=== PATIENT | male | born 1940 | race Caucasian/White ===

== ENCOUNTER 2021-07-14 15:17 | Emergency (ER) | payer OTHER ==
[2021-07-14 16:46] LABS: BASOPHIL 0.8 % (0-2); EOSINOPHIL 1.4 % (0-7); HCT 35.7 % (42.0-52.0); HGB 11.9 g/dl (13.2-18.0); LYMPHOCYTE 38.5 % (15-48); MCH 32.5 pg (25.0-31.0); MCHC 33.3 g/dL (32.0-36.0); MCV 97.5 fL (78.0-100.0); MONOCYTE 5.7 % (0-12); MPV 10.2 fL (6.0-9.5); NEUTROPHIL 53.3 % (41-80); NRBC 0; PLT 143 K/uL (150-400); RBC 3.66 M/uL (4.70-6.00); RDW 15.8 % (11.5-14.0); WBC 6.4 K/uL (4.0-10.5)
[2021-07-14 17:12] LABS: BILIRUBIN - TOTAL 0.4 mg/dL (0.2-1.0); BUN/CREAT RATIO (CALC) 22.9 RATIO; CREATININE 1.09 mg/dL (0.67-1.17); POTASSIUM 3.3 mmol/L (3.5-5.1)
[2021-07-14 17:24] LABS: LACTIC ACID 0.9 mmol/L (0.4-1.9)
[2021-07-14 17:33] LABS: BILIRUBIN NEGATIVE (NEGATIVE); BLOOD NEGATIVE Ery/uL (NEGATIVE); CLARITY CLEAR (CLEAR); COLOR YELLOW (YELLOW); GLUCOSE (U) NORMAL (NORMAL); LEUKOCYTES TRACE Leu/uL (NEGATIVE); NITRITE NEGATIVE (NEGATIVE); PROTEIN NEGATIVE (NEGATIVE); SPECIFIC GRAVITY 1.025 (1.001-1.030); UROBILINOGEN 0.2 mg/dL (0.2-1.0)
[2021-07-14 17:48] LABS: BACTERIA TRACE; TRANSITIONAL EPITHELIAL CELLS RARE
[2021-07-14] MEDS ORDERED: MIRALAX 238GM238 GM PO (20:01)
[2021-07-14] MEDS ORDERED: SENNA PLUS 8.61 EACH PO (20:01)
== END 2021-07-14 20:15 | disposition home or self-care (01) ==
LOC: FER 15:17
PROVIDERS: Emergency Medicine
DX: K59.00 Constipation, unspecified (principal); K80.80 Other cholelithiasis without obstruction; G20 Parkinson's disease; Z88.6 Allergy status to analgesic agent
CPT/HCPCS: 36415; 74022; 80053; 81001; 82553; 83605; 83690; 84443; 84484; 85025; 93005; Q9967